=== PATIENT | male | born 2000 | race Caucasian/White ===

== ENCOUNTER 2019-06-14 06:18 | Emergency (ER) | payer BC ==
[~2019-06-14] VITALS: Ht 162.6 cm; Wt 56.8 kg
[2019-06-14 07:03] LABS: BASO # 0.1 (0.0-0.2); BASO % 0.6 % (0.0-2.0); EOS # 0.2 (0.0-0.7); EOS % 1.2 % (0-4.0); GRAN # 9.2 (1.4-6.5); GRAN % 75.9 % (42.2-75.2); HEMATOCRIT 44.7 % (42.0-52.0); HEMOGLOBIN 15.6 g/dl (13.5-18.0); LYMPH # 1.9 (1.2-3.4); LYMPH % 15.6 % (20.0-51.0); MEAN CELL VOLUME 86 fl (80.0-100.0); MEAN CORPUSCULAR HEMOGLOBIN 30 pg (27.0-31.0); MEAN CORPUSCULAR HGB CONC 35 g/dl (33.0-37.0); MEAN PLATELET VOLUME 9.2 fl (7.4-10.4); MONO # 0.8 (0.1-0.6); MONO % 6.2 % (1.7-9.3); PLATELET COUNT 349 K/mm3 (130-400); RED BLOOD COUNT 5.22 M/mm3 (4.20-5.60); REDCELL DISTRIBUTION WIDTH-CV 12.9 % (11.5-14.5)
[2019-06-14 07:23] LABS: ALANINE AMINOTRANSFERASE < 6 U/L (21-72); ALKALINE PHOSPHATASE 62 U/L (50-136); ANION GAP 14 mmol/L (7-16); AST,SGOT 33 U/L (15-37); BILIRUBIN,TOTAL 1.6 mg/dL (0.0-1.0); BLOOD UREA NITROGEN 21 mg/dL (9-20); CALCIUM 10.3 mg/dL (8.4-10.2); CARBON DIOXIDE 23 mmol/L (22-30); CHLORIDE 102 mmol/L (98-107); CREATININE, serum 1.13 (0.66-1.25); GLUCOSE 129 mg/dL (74-106); LIPASE 60 U/L (23-300); POTASSIUM 4.1 mmol/L (3.4-5.0); SODIUM 139 mmol/L (137-145)
[2019-06-14 07:25] LABS: C-REACTIVE PROTEIN < 0.5 mg/dL (0.0-0.9)
[2019-06-14 08:26] LABS: COLLECTION METHOD CLEAN CATCH
[2019-06-14 08:38] LABS: MUCOUS Present /lpf; PH 7 (5-8); SQUAMOUS EPITHELIAL None Seen /hpf; URINE APPEARANCE Clear; URINE BACTERIA None Seen /hpf; URINE BILIRUBIN Negative (NEGATIVE); URINE BLOOD 2+ (NEGATIVE); URINE COLOR Yellow; URINE GLUCOSE Negative (NEGATIVE); URINE KETONE 1+ (NEGATIVE); URINE LEUKOCYTE ESTERASE Negative (NEGATIVE); URINE NITRATE Negative (NEGATIVE); URINE PROTEIN(semi-quant) Negative (NEGATIVE); URINE UROBILINOGEN Negative (NEGATIVE)
[2019-06-14] MEDS ORDERED: NORCO 325 MG-51 TAB PO (08:59)
[2019-06-14 09:49] VITALS: BP 106/74; PULSE 68; TEMP 98.4
== END 2019-06-14 10:01 | disposition home or self-care (01) ==
LOC: COL.ER 06:18
PROVIDERS: Family Medicine
DX: N20.1 Calculus of ureter (principal); Z87.442 Personal history of urinary calculi
CPT/HCPCS: J1170; J1885; J2405; J7030

== ENCOUNTER 2019-06-16 12:12 | Emergency (ER) | payer BC ==
[~2019-06-16 12:12] MED LIST: NORCO 325 MG-51 TAB PO
[2019-06-16] MEDS ORDERED: FLOMAX 0.40.4 MG/CAP PO (17:08)
[2019-06-16] MEDS ORDERED: CEPHALEXIN500 M1 PO (17:08)
== END 2019-06-16 12:28 | disposition left against medical advice (07) ==
LOC: COL.ER 12:12
DX: Z72.89 Other problems related to lifestyle (principal)

== ENCOUNTER 2019-06-16 13:30 | Emergency (ER) | payer BC ==
[~2019-06-16] VITALS: Ht 162.6 cm; Wt 55.0 kg
[2019-06-16 16:01] LABS: COLLECTION METHOD CLEAN CATCH
[2019-06-16 16:14] LABS: ALBUMIN 5.1 gm/dL (3.5-5.0); BASO # 0.1 (0.0-0.2); BASO % 0.3 % (0.0-2.0); BILIRUBIN,TOTAL 1.8 mg/dL (0.0-1.0); CALCIUM 10.5 mg/dL (8.4-10.2); CREATININE, serum 0.98 (0.66-1.25); EOS % 0.1 % (0-4.0); GRAN # 13.4 (1.4-6.5); GRAN % 82.2 % (42.2-75.2); HEMATOCRIT 45.3 % (42.0-52.0); HEMOGLOBIN 15.7 g/dl (13.5-18.0); LYMPH # 1.4 (1.2-3.4); LYMPH % 8.7 % (20.0-51.0); MEAN CELL VOLUME 85 fl (80.0-100.0); MEAN CORPUSCULAR HEMOGLOBIN 30 pg (27.0-31.0); MEAN CORPUSCULAR HGB CONC 35 g/dl (33.0-37.0); MEAN PLATELET VOLUME 9.4 fl (7.4-10.4); MONO # 1.3 (0.1-0.6); MONO % 8.2 % (1.7-9.3); PLATELET COUNT 389 K/mm3 (130-400); POTASSIUM 3.3 mmol/L (3.4-5.0); RED BLOOD COUNT 5.33 M/mm3 (4.20-5.60); REDCELL DISTRIBUTION WIDTH-CV 12.6 % (11.5-14.5); TOTAL PROTEIN 8.4 gm/dL (6.4-8.2)
[2019-06-16 16:19] LABS: PH 8 (5-8); SQUAMOUS EPITHELIAL None Seen /hpf; URINE APPEARANCE Clear; URINE BACTERIA None Seen /hpf; URINE BILIRUBIN Negative (NEGATIVE); URINE BLOOD 1+ (NEGATIVE); URINE COLOR Straw; URINE GLUCOSE Negative (NEGATIVE); URINE KETONE 1+ (NEGATIVE); URINE LEUKOCYTE ESTERASE Negative (NEGATIVE); URINE NITRATE Negative (NEGATIVE); URINE PROTEIN(semi-quant) Negative (NEGATIVE); URINE RBC 0-2 /hpf; URINE UROBILINOGEN Negative (NEGATIVE)
[2019-06-16 16:55] VITALS: BP 140/84; PULSE 83; TEMP 99.1
[2019-06-16] MEDS ORDERED: FLOMAX 0.40.4 MG/CAP PO (17:08)
[2019-06-16] MEDS ORDERED: CEPHALEXIN500 M1 PO (17:08)
== END 2019-06-16 17:20 | disposition home or self-care (01) ==
LOC: COL.ER 13:30
PROVIDERS: Physician Assistant
DX: R10.9 Unspecified abdominal pain (principal)
CPT/HCPCS: J1170; J1885; J7030

== ENCOUNTER 2021-08-22 17:08 | Emergency (ER) | payer BC ==
[~2021-08-22] VITALS: Ht 162.6 cm; Wt 65.9 kg
[~2021-08-22 17:08] MED LIST changes: +CEPHALEXIN500 M1 PO; +FLOMAX 0.40.4 MG/CAP PO
[2021-08-22 17:17] VITALS: TEMP 98.2
[2021-08-22 19:36] VITALS: BP 128/80; PULSE 76
== END 2021-08-22 19:36 | disposition home or self-care (01) ==
LOC: COL.ER 17:08
DX: S20.20XA Contusion of thorax, unspecified, initial encounter (principal); W18.2XXA Fall in (into) shower or empty bathtub, initial encounter; Y93.E1 Activity, personal bathing and showering
CPT/HCPCS: J1885

== ENCOUNTER 2021-10-28 19:12 | Emergency (ER) | payer BC ==
[~2021-10-28] VITALS: Ht 162.6 cm; Wt 66.8 kg
[2021-10-28 19:49] LABS: BASO # 0.1 K/mm3 (0.0-0.2); BASO % 0.7 % (0.0-2.0); EOS # 0.1 K/mm3 (0.0-0.7); EOS % 1.1 % (0.0-4.0); GRAN # 5.5 K/mm3 (1.4-6.5); GRAN % 65.8 % (42.2-75.2); HEMATOCRIT 42.7 % (42.0-52.0); HEMOGLOBIN 14.9 g/dl (13.5-18.0); LYMPH % 24.1 % (20.0-51.0); MEAN CELL VOLUME 86 fl (80.0-100.0); MEAN CORPUSCULAR HEMOGLOBIN 30 pg (27-31); MEAN CORPUSCULAR HGB CONC 35 g/dl (33.0-37.0); MEAN PLATELET VOLUME 9.2 fl (7.4-10.4); MONO # 0.6 K/mm3 (0.1-0.6); MONO % 7.6 % (1.7-9.3); PLATELET COUNT 393 K/mm3 (130-400); RED BLOOD COUNT 4.98 M/mm3 (4.20-5.60); REDCELL DISTRIBUTION WIDTH-CV 12.5 % (11.5-14.5)
[2021-10-28 19:56] VITALS: TEMP 98.6
[2021-10-28 20:12] LABS: ALBUMIN 4.8 gm/dL (3.5-5.0); BILIRUBIN,TOTAL 0.9 mg/dL (0.2-1.2); CALCIUM 9.8 mg/dL (8.4-10.2); CREATININE, serum 1.01 mg/dL (0.72-1.25); POTASSIUM 3.4 mmol/L (3.5-4.5); TOTAL PROTEIN 8.1 gm/dL (6.2-8.1)
[2021-10-28 20:42] LABS: COLLECTION METHOD CLEAN CATCH
[2021-10-28 20:55] LABS: PH 7 (5-8); SQUAMOUS EPITHELIAL None Seen /hpf (0-10); URINE APPEARANCE Clear (CLEAR/HAZY); URINE BACTERIA None Seen /hpf (NONE SEEN); URINE BILIRUBIN Negative (NEGATIVE); URINE BLOOD Negative (NEGATIVE); URINE COLOR Yellow (YELLOW); URINE GLUCOSE Negative (NEGATIVE); URINE KETONE Trace (NEGATIVE); URINE LEUKOCYTE ESTERASE Negative (NEGATIVE); URINE NITRATE Negative (NEGATIVE); URINE PROTEIN(semi-quant) Negative (NEGATIVE); URINE RBC None Seen /hpf (0-2); URINE UROBILINOGEN Negative (NEGATIVE)
[2021-10-28] MEDS ORDERED: NAPROSYN500 MG PO (21:19)
[2021-10-28 21:44] VITALS: BP 131/90; PULSE 110
== END 2021-10-28 22:23 | disposition home or self-care (01) ==
LOC: COL.ER 19:12
PROVIDERS: Emergency Medicine
DX: R10.31 Right lower quadrant pain (principal); E87.6 Hypokalemia
CPT/HCPCS: J1885; J2270; J7030; Q9967

== ENCOUNTER → 2021-11-01 | Outpatient (CLI) | payer BC ==
[~2021-11-01] MED LIST changes: +NAPROSYN500 MG PO
== END ==
LOC: COL.RAD 10:04
DX: N50.811 Right testicular pain (principal)